=== PATIENT | female | born 1940 | race Caucasian/White ===

== ENCOUNTER → 2017-06-12 | Outpatient (CLI) | payer MEDICARE ==
[2017-06-12 09:51] LABS: Basophils # (auto) 0.1 uL; Basophils % (auto) 1.3 % (0.0-2.0); Eosinophils # (auto) 0.2 uL; Eosinophils % (auto) 4.1 % (0.0-7.0); Hematocrit 37.2 % (36.0-46.0); Hemoglobin 12.9 g/dL (12.2-16.2); Lymphocytes # (auto) 1.6 uL; Lymphocytes % (auto) 34.5 % (10.0-50.0); Mean Corpuscular Hemoglobin 33.3 pg (28.0-32.0); Mean Corpuscular Hgb Conc. 34.7 g/dL (32.0-36.0); Mean Platelet Volume 8.1 fL (6.9-10.8); Monocytes # (auto) 0.3 uL; Monocytes % (auto) 7.1 % (0.0-12.0); Neutrophils # (auto) 2.5 uL; Nucleated Red Blood Cells % 0.1 %; Platelet Count (auto) 255 10^3/uL (140-450); Red Cell Distribution Width 13.7 % (11.8-14.3); White Blood Cell 4.7 10^3/uL (4.4-10.8)
[2017-06-12 10:05] LABS: Albumin 4.4 g/dL (3.4-5.0); BUN/Creatinine Ratio 12.7; Bilirubin, Total 0.5 mg/dL (0.2-1.0); Calcium 9.6 mg/dL (8.5-10.1); Potassium 3.6 mmol/L (3.5-5.1); Total Protein 8.2 g/dL (6.4-8.2)
== END | disposition home or self-care (01) ==
LOC: LAB 09:07
PROVIDERS: ATTEND Internal Medicine
DX: M25.50 Pain in unspecified joint (principal); Z79.899 Other long term (current) drug therapy
CPT/HCPCS: 36415; 80053; 80061; 82043; 84439; 84443; 85025; 85652

== ENCOUNTER → 2018-01-12 | Outpatient (CLI) | payer MEDICARE | END | disposition home or self-care (01) | LOC: XYW 14:10 | PROVIDERS: ATTEND Orthopaedic Surgery Adult Reconstructive Orthopaedic Surgery | DX: Z01.810 Encounter for preprocedural cardiovascular examination (principal); I35.1 Nonrheumatic aortic (valve) insufficiency; M17.9 Osteoarthritis of knee, unspecified | CPT/HCPCS: 93306 ==

== ENCOUNTER 2018-01-25 09:27 | Inpatient (IN) | payer MEDICARE ==
[2018-01-22 12:00] LABS: Basophils # (auto) 0 uL; Basophils % (auto) 0.9 % (0.0-2.0); Eosinophils # (auto) 0.1 uL; Eosinophils % (auto) 1.5 % (0.0-7.0); Hematocrit 37.3 % (36.0-46.0); Hemoglobin 12.4 g/dL (12.2-16.2); Lymphocytes # (auto) 1.5 uL; Lymphocytes % (auto) 30.6 % (10.0-50.0); Mean Corpuscular Hemoglobin 32.1 pg (28.0-32.0); Mean Corpuscular Hgb Conc. 33.3 g/dL (32.0-36.0); Mean Corpuscular Volume 96.6 fL (80.0-100.0); Monocytes # (auto) 0.3 uL; Monocytes % (auto) 6.1 % (0.0-12.0); Neutrophils # (auto) 2.9 uL; Neutrophils % (auto) 60.9 % (37.0-80.0); Platelet Count (auto) 252 10^3/uL (140-450); Red Blood Cells 3.86 10^6/uL (4.0-5.20); Red Cell Distribution Width 12.9 % (11.8-14.3); White Blood Cell 4.8 10^3/uL (4.4-10.8)
[2018-01-22 12:12] LABS: Urine Bacteria NONE SEEN /hpf (None Seen); Urine Blood Negative /uL (Negative); Urine WBC 15 /hpf (0 - 5)
[2018-01-22 12:17] LABS: INR 0.95 (0.9-1.15); Partial Thromboplastin Time 31.7 sec (22.64-33.71); Prothrombin Time 10.4 sec (9.37-12.3)
[2018-01-22 12:19] LABS: Albumin 4.3 g/dL (3.4-5.0); BUN/Creatinine Ratio 13.8; Bilirubin, Total 0.4 mg/dL (0.2-1.0); Calcium 9.1 mg/dL (8.5-10.1); Potassium 3.6 mmol/L (3.5-5.1); Total Protein 7.9 g/dL (6.4-8.2)
[~2018-01-25] VITALS: Ht 154.9 cm; Wt 74.4 kg
[~2018-01-25 09:27] MED LIST: ACET-1304 PO; ASPI81TA27 PO; IBUP200C53 PO; NAPR220C PO
[2018-01-25] MEDS ORDERED: LIDOCAINE HCL 2 %PF INJ 10ML AMP IJ ONE (11:30)
[2018-01-25] MEDS ORDERED: MIDAZOLAM HCL 1MG/1ML-2 ML VIAL ONE ×2 (11:31→12:34)
[2018-01-25] MEDS ORDERED: TRANEXAMIC ACID 20 ML ONE (12:34)
[2018-01-25] MEDS ORDERED: BUPIVACAINE W/ EPINEPH 0.25% INJ 50ML MDV ONE (12:34)
[2018-01-25] MEDS ORDERED: MORPHINE SULF(PF) 0.5MG/ML 10ML VIAL ONE ×2 (12:34→12:39)
[2018-01-25] MEDS ORDERED: VANCOMYCIN HCL 1000 MG VL ONE (12:35)
[2018-01-25] MEDS ORDERED: ceFAZolin 1GM/100ML 100 ML IV ONE (12:58)
[2018-01-25] MEDS ORDERED: ePHEDrine SULFATE 50 MG/ML AMP ONE (13:27)
[2018-01-25] MEDS ORDERED: PROPOFOL 10 MG/ML 20 ML IV ONE (13:28)
[2018-01-25] MEDS ORDERED: METOCLOPRAMIDE HCL 5MG/ml INJ 2ml VIAL ONE (13:31)
[2018-01-25] MEDS ORDERED: ONDANSETRON HCL 4 MG/2 ML VIAL ONE (13:35)
[2018-01-25] MEDS ORDERED: PROMETHAZINE HCL 25 MG/ML 1ML ONE (13:40)
[2018-01-25] MEDS ORDERED: KETOROLAC TROMETH 30 MG/ML 1ML VIAL IV PRN ×2 (14:00→16:30)
[2018-01-25] MEDS ORDERED: PROMETHAZINE HCL 25 MG/ML 1ML IV PRN (14:00)
[2018-01-25] MEDS ORDERED: ONDANSETRON HCL 4 MG/2 ML VIAL IV PRN (14:00)
[2018-01-25] MEDS ORDERED: diphenhdrAMINE HCL 50 MG/1 ML VL IV PRN (14:00)
[2018-01-25] MEDS ORDERED: ePHEDrine SULFATE 50 MG/ML AMP IV PRN (14:00)
[2018-01-25] MEDS ORDERED: NALOXONE HCL 0.4 MG/ML VIAL IV PRN (14:00)
[2018-01-25] MEDS ORDERED: ONDANSETRON HCL 4 MG/2 ML VIAL IV ONE (14:00)
[2018-01-25] MEDS ORDERED: MORPHINE SULFATE 4 MG/ML SYR/VIAL IV PRN ×2 (14:00→16:00)
[2018-01-25] MEDS ORDERED: BISACODYL 5 MG EC TAB PO PRN (16:00)
[2018-01-25] MEDS ORDERED: traMADol HCL 50 MG TAB PO PRN (16:00)
[2018-01-25] MEDS ORDERED: ACETAMINOPHEN 325 MG TAB PO PRN (16:00)
[2018-01-25] MEDS ORDERED: NITROGLYCERIN 0.4 MG SL TAB SL PRN (16:00)
[2018-01-25 17:18] VITALS: BP 134/69
[2018-01-25] MEDS: LACTATED RINGER'S 1,000 ML IV SCH (18:14)
[2018-01-25] MEDS: ceFAZolin 1GM/100ML 50 ML IV SCH (18:16)
[2018-01-25] MEDS: ONDANSETRON HCL 4 MG/2 ML VIAL IV PRN (21:17)
[2018-01-25] MEDS: DOCUSATE SOD 100 MG CAP PO SCH (21:17)
[2018-01-25 22:00] VITALS: BP 141/81
[2018-01-25] MEDS ORDERED: oxyCODONE ER 10 MG TAB PO SCH (22:00)
[2018-01-25] MEDS: SODIUM CHLOR 0.9% PF (SALINE LOCK) 10ML VIAL/SYR IV SCH (22:00)
[2018-01-25] MEDS: KETOROLAC TROMETH 30 MG/ML 1ML VIAL IV SCH (22:00)
[2018-01-26] MEDS: ceFAZolin 1GM/100ML 50 ML IV SCH ×2 (00:12→06:10)
[2018-01-26] MEDS: LACTATED RINGER'S 1,000 ML IV SCH ×2 (02:45→11:46)
[2018-01-26] MEDS: ONDANSETRON HCL 4 MG/2 ML VIAL IV PRN (05:00)
[2018-01-26 05:45] VITALS: BP 159/76
[2018-01-26 06:02] LABS: Hematocrit 32.4 % (36.0-46.0); Hemoglobin 11.2 g/dL (12.2-16.2)
[2018-01-26] MEDS: KETOROLAC TROMETH 30 MG/ML 1ML VIAL IV SCH ×3 (06:11→22:01)
[2018-01-26] MEDS: SODIUM CHLOR 0.9% PF (SALINE LOCK) 10ML VIAL/SYR IV SCH ×3 (06:12→22:01)
[2018-01-26 06:17] LABS: Albumin 3.8 g/dL (3.4-5.0); BUN/Creatinine Ratio 12.5; Bilirubin, Total 0.4 mg/dL (0.2-1.0); Calcium 8.6 mg/dL (8.5-10.1); Potassium 3.6 mmol/L (3.5-5.1); Total Protein 7.2 g/dL (6.4-8.2)
[2018-01-26 09:00] VITALS: BP 144/73
[2018-01-26] MEDS: BOOST PLUS 8 ounce PO SCH ×3 (09:10→17:54)
[2018-01-26] MEDS: DOCUSATE SOD 100 MG CAP PO SCH ×2 (10:00→21:53)
[2018-01-26] MEDS: ENOXAPARIN SOD 30 MG/0.3 ML SYRINGE SC SCH (10:34)
[2018-01-26 13:00] VITALS: BP 142/70
[2018-01-26 17:00] VITALS: BP 148/68
[2018-01-26] MEDS: OXYCODONE W/ ACETAMINOPHEN 5/325MG TABLET PO PRN ×2 (17:43→23:26)
[2018-01-26] MEDS: MORPHINE SULFATE 4 MG/ML SYR/VIAL IV PRN (20:36)
[2018-01-26 21:56] VITALS: BP 144/71
[2018-01-27] MEDS: MORPHINE SULFATE 4 MG/ML SYR/VIAL IV PRN (01:05)
[2018-01-27] MEDS: OXYCODONE W/ ACETAMINOPHEN 5/325MG TABLET PO PRN ×3 (05:05→19:49)
[2018-01-27 05:18] VITALS: BP 154/71
[2018-01-27 05:58] LABS: Hematocrit 28.7 % (36.0-46.0); Hemoglobin 9.9 g/dL (12.2-16.2)
[2018-01-27] MEDS: SODIUM CHLOR 0.9% PF (SALINE LOCK) 10ML VIAL/SYR IV SCH ×3 (06:52→21:45)
[2018-01-27] MEDS: KETOROLAC TROMETH 30 MG/ML 1ML VIAL IV SCH (06:53)
[2018-01-27 09:00] VITALS: BP 138/76
[2018-01-27] MEDS: ENOXAPARIN SOD 30 MG/0.3 ML SYRINGE SC SCH (09:36)
[2018-01-27] MEDS: DOCUSATE SOD 100 MG CAP PO SCH ×2 (09:37→21:45)
[2018-01-27] MEDS: BOOST PLUS 8 ounce PO SCH ×3 (09:40→17:56)
[2018-01-27] MEDS ORDERED: OXYCODONE W/ ACETAMINOPHEN 5/325MG TABLET PO ONE (11:30)
[2018-01-27] MEDS: METOCLOPRAMIDE HCL 5MG/ml INJ 2ml VIAL IV PRN (12:20)
[2018-01-27 13:00] VITALS: BP 136/76
[2018-01-27 17:00] VITALS: BP 138/74
[2018-01-27] MEDS: FERROUS SULFATE 325 MG TAB PO SCH (17:55)
[2018-01-27] MEDS: FAMOTIDINE 20 MG TAB PO SCH (21:45)
[2018-01-27 22:00] VITALS: BP 159/70
[2018-01-28] MEDS: OXYCODONE W/ ACETAMINOPHEN 5/325MG TABLET PO PRN ×3 (01:53→11:03)
[2018-01-28] MEDS: METOCLOPRAMIDE HCL 5MG/ml INJ 2ml VIAL IV PRN (03:37)
[2018-01-28 05:00] VITALS: BP 125/57
[2018-01-28] MEDS: SODIUM CHLOR 0.9% PF (SALINE LOCK) 10ML VIAL/SYR IV SCH (05:50)
[2018-01-28 08:36] LABS: Hemoglobin 9.6 g/dL (12.2-16.2)
[2018-01-28] MEDS: FERROUS SULFATE 325 MG TAB PO SCH (08:50)
[2018-01-28] MEDS: BOOST PLUS 8 ounce PO SCH ×2 (08:53→12:33)
[2018-01-28 09:00] VITALS: BP 148/68
[2018-01-28] MEDS: DOCUSATE SOD 100 MG CAP PO SCH (11:00)
[2018-01-28] MEDS: ENOXAPARIN SOD 30 MG/0.3 ML SYRINGE SC SCH (11:00)
[2018-01-28] MEDS: FAMOTIDINE 20 MG TAB PO SCH (11:00)
== END 2018-01-28 12:40 | DRG 470 ==
LOC: SUR 09:27 → CENTRAL 09:28
PROVIDERS: ADMIT Orthopaedic Surgery Adult Reconstructive Orthopaedic Surgery; ATTEND Hospitalist
PROC: 8E0YXBZ Computer Assisted Procedure of Lower Extremity (ICD-10-PCS; 2018-01-25)
PROC: 0SRC0J9 Replacement of Right Knee Joint with Synthetic Substitute, Cemented, Open Approach (ICD-10-PCS; principal; 2018-01-25 13:01)
DX: M17.0 Bilateral primary osteoarthritis of knee (principal); D62 Acute posthemorrhagic anemia; M06.9 Rheumatoid arthritis, unspecified; I10 Essential (primary) hypertension; Z88.2 Allergy status to sulfonamides; R11.2 Nausea with vomiting, unspecified; K21.9 Gastro-esophageal reflux disease without esophagitis
CPT/HCPCS: 36415; 71045; 73562; 80053; 81001; 85014; 85018; 85025; 85610; 85730; 86850; 86900; 86901; 97110; 97116; 97530; A6198; C1713; J0690; J1885; J2250; J2405; J2704

== ENCOUNTER → 2019-10-25 | Outpatient (CLI) | payer OTHER | END | disposition home or self-care (01) | LOC: LAB 12:24 | PROVIDERS: ATTEND Nurse Practitioner | DX: Z02.1 Encounter for pre-employment examination (principal) | CPT/HCPCS: 86735; 86762; 86765; 86787 ==